=== PATIENT | female | born 1985 | race Caucasian/White ===

== ENCOUNTER 2018-05-20 17:15 | Emergency (ER) | payer OTHER ==
[~2018-05-20] VITALS: Ht 162.6 cm; Wt 94.8 kg
[2018-05-20] MEDS ORDERED: LEVOTHYROXINE100 MC1 IV (17:30)
[2018-05-20] MEDS ORDERED: NORVASC2.5 MG PO (17:30)
[2018-05-20] MEDS ORDERED: FOLIC ACID1 MG PO (17:31)
[2018-05-20] MEDS ORDERED: METHOTREXATE 22.5 M1 PO (17:31)
[2018-05-20] MEDS ORDERED: CIPROFLOXIN HC2.5 M1 OTIC (17:49)
[2018-05-20 18:02] VITALS: BP 137/95
== END 2018-05-20 18:04 | disposition home or self-care (01) ==
LOC: M.ERS 17:15
DX: H10.89 Other conjunctivitis (principal); B96.89 Other specified bacterial agents as the cause of diseases classified elsewhere; I10 Essential (primary) hypertension; E03.9 Hypothyroidism, unspecified; M06.9 Rheumatoid arthritis, unspecified

== ENCOUNTER 2019-04-22 06:28 | Emergency (ER) | payer OTHER ==
[~2019-04-22] VITALS: Ht 162.6 cm; Wt 100.2 kg
[~2019-04-22 06:28] MED LIST: CIPROFLOXIN HC2.5 M1 OTIC; FOLIC ACID1 MG PO; IBUPROFEN 800800 M1 PO; LEVOTHYROXINE100 MC1 IV; METHOTREXATE 22.5 M1 PO; MOBIC15 MG PO; NORVASC2.5 MG PO
[2019-04-22 06:37] VITALS: BP 127/86
[2019-04-22] MEDS ORDERED: RAYOS5 MG PO (06:42)
[2019-04-22] MEDS ORDERED: PENICILLIN VK500 MG PO (06:49)
[2019-04-22] MEDS ORDERED: NORCO 5-325 TA1 EAC1 PO (06:49)
== END 2019-04-22 06:55 | disposition home or self-care (01) ==
LOC: M.ERS 06:28
DX: K02.9 Dental caries, unspecified (principal); I10 Essential (primary) hypertension; E03.9 Hypothyroidism, unspecified; M06.9 Rheumatoid arthritis, unspecified

== ENCOUNTER 2019-06-15 08:00 | Emergency (ER) | payer OTHER ==
[~2019-06-15] VITALS: Ht 162.6 cm; Wt 99.8 kg
[~2019-06-15 08:00] MED LIST changes: +NORCO 5-325 TA1 EAC1 PO; +PENICILLIN VK500 MG PO; +RAYOS5 MG PO
[2019-06-15] MEDS ORDERED: [UNRECOGNIZED DRUG - REMARK] (08:15)
[2019-06-15] MEDS ORDERED: NORCO 5-325 TA1 EAC1 PO (08:23)
[2019-06-15] MEDS ORDERED: AMOXICILLIN 50500 MG PO (08:23)
[2019-06-15 08:47] VITALS: BP 121/92
== END 2019-06-15 08:47 | disposition home or self-care (01) ==
LOC: M.ERS 08:00
DX: K04.7 Periapical abscess without sinus (principal); I10 Essential (primary) hypertension; E03.9 Hypothyroidism, unspecified; M06.9 Rheumatoid arthritis, unspecified

== ENCOUNTER 2019-07-11 07:31 | Emergency (ER) | payer OTHER ==
[~2019-07-11] VITALS: Ht 162.6 cm; Wt 101.2 kg
[~2019-07-11 07:31] MED LIST changes: +AMOXICILLIN 50500 MG PO; -LEVOTHYROXINE100 MC1 IV; +NORVASC10 MG PO; -NORVASC2.5 MG PO; +SYNTHROID100 MC1 PO; +[UNRECOGNIZED DRUG - REMARK]
[2019-07-11 07:40] VITALS: BP 111/73
[2019-07-11] MEDS ORDERED: MELOXICAM15 MG PO (07:54)
[2019-07-11] MEDS ORDERED: PLAQUENIL200 MG PO (07:54)
[2019-07-11] MEDS ORDERED: CEFDINIR300 MG PO (08:15)
== END 2019-07-11 08:41 | disposition home or self-care (01) ==
LOC: M.ERS 07:31
DX: J32.9 Chronic sinusitis, unspecified (principal); I10 Essential (primary) hypertension; E03.9 Hypothyroidism, unspecified; M06.9 Rheumatoid arthritis, unspecified

== ENCOUNTER 2019-08-06 05:37 | Emergency (ER) | payer OTHER ==
[~2019-08-06] VITALS: Ht 162.6 cm; Wt 102.1 kg
[~2019-08-06 05:37] MED LIST changes: +CEFDINIR300 MG PO; +MELOXICAM15 MG PO; +PLAQUENIL200 MG PO
[2019-08-06] MEDS ORDERED: MEDROLDOSEPACK PO (05:56)
[2019-08-06] MEDS ORDERED: CEFDINIR300 MG PO (05:58)
[2019-08-06 06:04] VITALS: BP 130/90
== END 2019-08-06 06:04 | disposition home or self-care (01) ==
LOC: M.ERS 05:37
DX: K11.1 Hypertrophy of salivary gland (principal); I10 Essential (primary) hypertension; E03.9 Hypothyroidism, unspecified; M06.9 Rheumatoid arthritis, unspecified

== ENCOUNTER 2020-01-28 15:59 | Emergency (ER) | payer OTHER ==
[~2020-01-28] VITALS: Ht 162.6 cm; Wt 98.0 kg
[~2020-01-28 15:59] MED LIST changes: +MEDROLDOSEPACK PO
[2020-01-28] MEDS ORDERED: AMOXICILLIN 50500 MG PO (17:18)
[2020-01-28 17:23] VITALS: BP 130/70
== END 2020-01-28 17:24 | disposition home or self-care (01) ==
LOC: M.ERS 15:59
DX: S02.5XXA Fracture of tooth (traumatic), initial encounter for closed fracture (principal); K04.7 Periapical abscess without sinus; I10 Essential (primary) hypertension; E03.9 Hypothyroidism, unspecified; M06.9 Rheumatoid arthritis, unspecified; X58.XXXA Exposure to other specified factors, initial encounter; Y93.89 Activity, other specified; Y92.89 Other specified places as the place of occurrence of the external cause; Y99.8 Other external cause status

== ENCOUNTER 2020-04-06 03:44 | Emergency (ER) | payer OTHER ==
[~2020-04-06] VITALS: Ht 162.6 cm; Wt 98.9 kg
[2020-04-06] MEDS ORDERED: TRAMADOL 50 MG50 MG PO (04:19)
[2020-04-06] MEDS ORDERED: CLEOCIN HCL300 MG PO (04:19)
[2020-04-06 04:32] VITALS: BP 132/88
== END 2020-04-06 04:33 | disposition home or self-care (01) ==
LOC: M.ERS 03:44
DX: K04.7 Periapical abscess without sinus (principal); I10 Essential (primary) hypertension; E03.9 Hypothyroidism, unspecified; M06.9 Rheumatoid arthritis, unspecified

== ENCOUNTER 2020-07-31 11:58 | Emergency (ER) | payer OTHER ==
[~2020-07-31] VITALS: Ht 162.6 cm; Wt 101.6 kg
[~2020-07-31 11:58] MED LIST changes: +CLEOCIN HCL300 MG PO; +TRAMADOL 50 MG50 MG PO
[2020-07-31] MEDS ORDERED: DIFLUCAN150 MG PO (12:46)
[2020-07-31 12:55] VITALS: BP 145/65
== END 2020-07-31 12:57 | disposition home or self-care (01) ==
LOC: M.ERS 11:58
DX: N89.8 Other specified noninflammatory disorders of vagina (principal); I10 Essential (primary) hypertension; E03.9 Hypothyroidism, unspecified; M06.9 Rheumatoid arthritis, unspecified